=== PATIENT | female | born 1980 | race Caucasian/White ===

== ENCOUNTER 2016-10-21 16:29 | Emergency (ER) | payer OTHER ==
[2016-10-21 16:40] VITALS: BP 133/92
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
== END 2016-10-21 18:30 | disposition home or self-care (01) ==
LOC: ER 16:29
DX: M54.5 Low back pain (principal); V89.2XXA Person injured in unspecified motor-vehicle accident, traffic, initial encounter; Y93.89 Activity, other specified; Y99.8 Other external cause status; Y92.89 Other specified places as the place of occurrence of the external cause
CPT/HCPCS: 72100; 81025; 99284

== ENCOUNTER 2017-03-05 21:42 | Inpatient (IN) | payer OTHER ==
[~2017-03-05] VITALS: Ht 170.2 cm; Wt 106.1 kg
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
[2017-03-05] MEDS ORDERED: FAMOTIDINE 20 MG/2 ML VIAL IVP ONE (22:15)
[2017-03-05] MEDS ORDERED: ONDANSETRON PF 4 MG/2 ML VIAL. IV ONE (22:15)
[2017-03-05] MEDS ORDERED: MORPHINE SULFATE 4 MG/ML DISP.SYRIN. IV ONE (22:15)
[2017-03-05] MEDS ORDERED: LIDO:MAALOX 1:1 20 ML SINGLE DOSE PO ONE (22:15)
[2017-03-05] MEDS ORDERED: IV RINGERS SOLUTION,LACTATED 1,000 ML IV SCH (22:15)
[2017-03-05 22:36] LABS: BASO # 0.1 x10^3/uL (0.0-0.2); BASO % 1 % (0-3); EOS # 0.2 x10^3/uL (0.0-0.7); EOS % 2 % (0-3); HEMATOCRIT 37.5 % (36.0-47.0); HEMOGLOBIN 12.6 g/dL (12.0-15.5); LYMPH % 26 % (24-48); MEAN CORPUSCULAR HEMOGLOBIN 26 pg (25-35); MEAN CORPUSCULAR HGB CONC 34 g/dL (31-37); MEAN CORPUSCULAR VOLUME 78 fL (79-100); MONO # 0.8 x10^3/uL (0.0-1.1); MONO % 7 % (0-9); NEUT # 7.8 x10^3uL (1.8-7.7); NEUT % 65 % (31-73); PLATELET COUNT 234 x10^3/uL (140-400); RED BLOOD COUNT 4.83 x10^6/uL (3.50-5.40); WHITE BLOOD COUNT 11.9 x10^3/uL (4.0-11.0)
[2017-03-05] MEDS ORDERED: IOHEXOL 240 MG/ML 50ML VIAL. PO ONE (22:45)
[2017-03-05] MEDS ORDERED: CONTRAST GIVEN MC PRN (22:45)
[2017-03-05] MEDS ORDERED: IOHEXOL 300 MG/ML 75 ML VIAL. IV ONE (22:45)
[2017-03-05 22:57] LABS: ALBUMIN 3.1 g/dL (3.4-5.0); ALK PHOS 93 U/L (46-116); ALT (SGPT) 18 U/L (14-59); AMYLASE 52 U/L (25-115); ANION GAP 7 (6-14); AST (SGOT) 12 U/L (15-37); BLOOD UREA NITROGEN 10 mg/dL (7-20); CALCIUM 8.7 mg/dL (8.5-10.1); CARBON DIOXIDE 26 mmol/L (21-32); CHLORIDE 105 mmol/L (98-107); CREATINE KINASE 70 U/L (26-192); CREATININE 0.8 mg/dL (0.6-1.0); DIRECT BILIRUBIN 0.1 mg/dL (0.0-0.2); GFR 81.2; GLUCOSE 100 mg/dL (70-99); LIPASE 422 U/L (73-393); POTASSIUM 3.8 mmol/L (3.5-5.1); SODIUM 138 mmol/L (136-145); TOTAL BILIRUBIN 0.3 mg/dL (0.2-1.0); TOTAL PROTEIN 7.4 g/dL (6.4-8.2)
[2017-03-05 23:07] LABS: U PREG PATIENT NEGATIVE (NEG)
[2017-03-05 23:10] LABS: BACTERIA,URINE FEW /HPF (0-FEW); BILIRUBIN,URINE NEG (NEG); CLARITY,URINE HAZY; COLOR,URINE YELLOW; GLUCOSE,URINE NEG (NEG); NITRITE,URINE NEG (NEG); RBC,URINE OCC /HPF (0-2); UROBILINOGEN,URINE 0.2 mg/dL (0.2 mg/dL); WBC,URINE OCC /HPF (0-4)
[2017-03-05 23:11] LABS: SQUAMOUS EPITHELIAL CELL,UR MOD /LPF
--- NOTE | 2017-03-05 23:14 | RAD ---
PQRS Compliance Statement: One or more of the following individualized dose reduction techniques were utilized for this examination: 1. Automated exposure control 2. Adjustment of the mA and/or kV according to patient size 3. Use of iterative reconstruction technique CT abdomen/pelvis with contrast 03/05/2017 10:55 PM INDICATION: Severe epigastric pain, nausea. History of pancreatitis 2 years ago. COMPARISON: None available TECHNIQUE: Multiple axial CT images of the abdomen and pelvis were obtained after the intravenous administration of nonionic contrast. Coronal and sagittal reformats are provided. FINDINGS: Visualized portions of the lung bases are clear. Heart size is within normal limits. Liver, spleen, bilateral adrenal glands and gallbladder are normal in appearance. There is mild peripancreatic fat stranding which may reflect pancreatitis. Splenic vein is patent. Superior mesenteric artery is normal in appearance. Abdominal aorta is normal in course and caliber. Kidneys enhance symmetrically. No suspicious renal mass. There is no hydronephrosis. No calculi are identified in the kidneys, ureters or urinary bladder. Small and large bowel are normal in caliber. A normal appendix is visualized. No bowel inflammation or obstruction. Urinary bladder is within normal limits given degree of distention. Uterus and adnexa are within normal limits. No suspicious osseous lesions are identified. IMPRESSION: Findings are suggestive of mild pancreatitis. No peripancreatic fluid collections are identified. No vascular complications are identified. Electronically signed by: Frances Bennett MD (03/05/2017 11:10 PM) [facility] [place]
[2017-03-06] MEDS ORDERED: ONDANSETRON PF 4 MG/2 ML VIAL. IV PRN
[2017-03-06 01:21] VITALS: BP 129/93
[2017-03-06] MEDS ORDERED: ACETAMINOPHEN 325 MG TABLET PO PRN (04:45)
[2017-03-06 05:23] VITALS: BP 107/68
[2017-03-06 06:59] LABS: CALCIUM 8.4 mg/dL (8.5-10.1); CREATININE 0.7 mg/dL (0.6-1.0); GFR 94.7; POTASSIUM 3.7 mmol/L (3.5-5.1)
[2017-03-06 07:03] LABS: BASO # 0.1 x10^3/uL (0.0-0.2); BASO % 1 % (0-3); EOS # 0.2 x10^3/uL (0.0-0.7); EOS % 2 % (0-3); HEMATOCRIT 35.3 % (36.0-47.0); LYMPH # 3.2 x10^3/uL (1.0-4.8); LYMPH % 29 % (24-48); MEAN CORPUSCULAR HEMOGLOBIN 27 pg (25-35); MEAN CORPUSCULAR HGB CONC 34 g/dL (31-37); MEAN CORPUSCULAR VOLUME 78 fL (79-100); MONO # 0.6 x10^3/uL (0.0-1.1); MONO % 6 % (0-9); NEUT # 6.8 x10^3uL (1.8-7.7); NEUT % 62 % (31-73); PLATELET COUNT 220 x10^3/uL (140-400); RED BLOOD COUNT 4.52 x10^6/uL (3.50-5.40); RED CELL DISTRIBUTION WIDTH 13.7 % (11.5-14.5); WHITE BLOOD COUNT 10.9 x10^3/uL (4.0-11.0)
--- NOTE | 2017-03-06 07:42 | RAD ---
Acute abdomen series, 3 views, 03/05/2017: History: Epigastric pain, nausea The abdominal gas pattern is unremarkable. No free air is seen in the abdomen. There is no evidence of organomegaly. Lower pelvic calcifications are compatible with phleboliths. The heart size is normal. The lungs are clear. IMPRESSION: No acute abdominal abnormality is detected.
[2017-03-06] MEDS: FAMOTIDINE 20 MG/2 ML VIAL IVP SCH ×2 (09:41→20:47)
[2017-03-06 10:51] VITALS: BP 118/80
[2017-03-06] MEDS: IV RINGERS SOLUTION,LACTATED 1,000 ML IV SCH ×3 (12:00→20:48)
[2017-03-06 15:09] VITALS: BP 120/81
[2017-03-06] MEDS ORDERED: MORPHINE SULFATE 4 MG/ML DISP.SYRIN. IV PRN (15:45)
[2017-03-06] MEDS: HYDROmorphone PF 2 MG/ML VIAL IV PRN ×2 (16:38→20:47)
[2017-03-06] MEDS ORDERED: NORE1CAP PO (18:48)
[2017-03-06] MEDS: cefTRIAXone IV Push 1 GM VIAL. IVP SCH (20:48)
--- NOTE | 2017-03-06 21:18 | HP ---
ADMIT DATE: 03/06/2017 HISTORY OF PRESENT ILLNESS: The patient is a 36-year-old female patient who came to the Emergency Room complaining abdominal pain that mostly in the epigastric area associated with nausea, but no vomiting. The pain started about 2 days ago. Did complain of some chills, but no fever or rigors. She described her pain similar to her pancreatitis; however, the last time she drank any alcohol was about the New Year's Tracie. She does take ibuprofen for headache, but has no history of any melena or hematochezia. She is not known to have acute cholecystitis or cholelithiasis. Evaluation in the Emergency Room showed that her serum lipase was high at 422, and therefore, she was admitted with acute pancreatitis. She was kept n.p.o., started on IV fluid and pain medication with the plan is to follow her lipase. She did have a CT scan of the abdomen and pelvis, which showed that the visualized portion of the lung bases are clear, heart size is within normal limits. Liver, spleen, bilateral adrenal glands and gallbladder are normal in appearance. There is mild peripancreatic fat stranding, which may reflect pancreatitis. Splenic vein is patent. Superior mesenteric artery is normal in appearance. Abdominal aorta is normal in course and caliber. Kidneys enhanced symmetrically. No suspicious renal masses. There is hydronephrosis, no calculi identified in both kidneys, ureters or urinary bladder. Small and large bowels are normal in caliber and normal appendix is visualized. No bowel inflammation or obstruction. Urinary bladder is within normal limits. Given degree of distention, uterus and adnexa are within normal limits. No suspicious osseous lesions are identified. With the findings are suggestive of mild pancreatitis with no pancreatic or peripancreatic fluid collection identified, no vascular complication identified. The patient was kept n.p.o., started on IV fluid and pain medication. DICTATION ENDS HERE JOSE ANGEL STRONG MD DR: PAMELA/tricia JOB#: [id number] / [id number]
[2017-03-06 21:23] VITALS: BP 129/86
[2017-03-07] VITALS (7 sets, daily range): BP systolic 100–136; BP diastolic 41–84
[2017-03-07] MEDS: HYDROmorphone PF 2 MG/ML VIAL IV PRN ×5 (01:55→21:21)
[2017-03-07] MEDS: ONDANSETRON PF 4 MG/2 ML VIAL. IV PRN ×2 (05:18→15:03)
[2017-03-07 07:15] LABS: ALBUMIN 2.8 g/dL (3.4-5.0); ALBUMIN/GLOBULIN RATIO 0.7 (1.0-1.7); CALCIUM 8.7 mg/dL (8.5-10.1); CREATININE 0.7 mg/dL (0.6-1.0); GFR 94.7; HEMATOCRIT 34.9 % (36.0-47.0); HEMOGLOBIN 11.6 g/dL (12.0-15.5); RED BLOOD COUNT 4.4 x10^6/uL (3.50-5.40); RED CELL DISTRIBUTION WIDTH 14.2 % (11.5-14.5); TOTAL BILIRUBIN 0.5 mg/dL (0.2-1.0); WHITE BLOOD COUNT 9.5 x10^3/uL (4.0-11.0)
[2017-03-07] MEDS: FAMOTIDINE 20 MG/2 ML VIAL IVP SCH ×2 (09:55→21:21)
[2017-03-07] MEDS: IV RINGERS SOLUTION,LACTATED 1,000 ML IV SCH ×3 (14:00→21:20)
[2017-03-07] MEDS: cefTRIAXone IV Push 1 GM VIAL. IVP SCH (21:21)
[2017-03-08] MEDS: HYDROmorphone PF 2 MG/ML VIAL IV PRN (03:45)
[2017-03-08 05:04] VITALS: BP 125/79
[2017-03-08 06:54] LABS: CALCIUM 8.6 mg/dL (8.5-10.1); CREATININE 0.8 mg/dL (0.6-1.0); GFR 81.2; POTASSIUM 4.1 mmol/L (3.5-5.1)
--- NOTE | 2017-03-08 07:18 | RAD ---
Abdominal ultrasound, 03/07/2017: History: Recurrent pancreatitis The gallbladder is within normal limits in size. There is no sonographic evidence of cholelithiasis. The common hepatic duct is of normal caliber. There is no evidence of a hepatic mass. The pancreas was obscured by overlying bowel. The spleen is of normal size. No renal abnormality is detected. The abdominal aorta and inferior vena cava are unremarkable. No free fluid is evident in the abdomen. IMPRESSION: No acute abdominal abnormality is detected, although the pancreas was not adequately visualized due to overlying bowel.
--- NOTE | 2017-03-08 07:39 | PN ---
DATE: 03/07/2017 SUBJECTIVE: The patient is resting, sitting up in her bed comfortably in no apparent distress. She continued to complain of mild abdominal pain, some nausea, has not eaten anything so far. However, her serum lipase is down to 172. PHYSICAL EXAMINATION: GENERAL: When I examined her this afternoon, she looked well and was clearly in no apparent respiratory distress, pale, but jaundice, cyanosis, lymphadenopathy or thyromegaly. No jugular venous distension. No limb edema. VITAL SIGNS: Her heart rate was 81, blood pressure was 118/84, temperature was 98.3, respiratory rate 20, and oxygen saturation was 96%. HEENT: Normocephalic, atraumatic. NECK: Supple. HEART: Showed normal first and second heart sounds. No gallop, rub or murmur. CHEST: Clear to auscultation. No crepitation or rhonchi. ABDOMEN: Distended, soft, nontender. No guarding or rigidity. No organomegaly. Hernial orifice intact. Bowel sounds normal. NEUROLOGIC: She is awake, alert, responding appropriately. All cranial nerves intact. She moves extremities without difficulty. She ambulates without assistance or assistive devices. LABORATORY DATA: Her lab work this morning showed a white cell count of 9500, hemoglobin 11.6, hematocrit 35, MCV 79 and platelet count 226,000. Her serum sodium 140, potassium 4, chloride 104, bicarbonate 27, anion gap of 9, BUN 10, creatinine 0.7, estimated GFR was 95 mL per minute. Her glucose was 91, calcium was 8.7. Total bilirubin, AST, ALT, alkaline phosphatase were normal. Total protein 7, albumin 2.8. Serum lipase 172. ASSESSMENT: Relapsing pancreatitis. We will start with a clear liquid and advance diet tomorrow morning. We will also arrange for her to have abdominal ultrasound, although the CT scan showed the gallbladder was abnormal in appearance. There was some peripancreatic fat stranding, which may reflect pancreatitis, splenic vein is patent, superior mesenteric artery is normal in appearance. Abdominal aorta is normal. We will repeat all her labs tomorrow including fasting lipid profile and abdominal ultrasound and decide on the further management accordingly. JOSE ANGEL STRONG MD DR: PAMELA/tricia JOB#: [id number] / [id number]
[2017-03-08] MEDS: FAMOTIDINE 20 MG/2 ML VIAL IVP SCH (07:53)
[2017-03-08 11:41] VITALS: BP 126/72
[2017-03-08 15:29] VITALS: BP 111/77
[2017-03-08] MEDS ORDERED: LACTOBACILLUS RHAMNOSUS GG 1 CAPSULE. PO SCH (21:00)
--- NOTE | 2017-03-08 21:25 | DS ---
DATE OF DISCHARGE: 03/08/2017 HOSPITAL COURSE: The patient is a 36-year-old female patient, who came with a complaint of abdominal pain and was basically diagnosed with acute pancreatitis. We did extensive work initially including acute abdomen series and abdominal CT scan, which basically showed that there is mild peripancreatic stranding, which may reflect pancreatitis; however, the liver, spleen, bilateral adrenal glands, and gallbladders are normal in appearance. We initially kept her n.p.o., continue the IV fluid and IV pain medication. As her serum lipase trended down, we will start her on clear liquid and advance as tolerated. We checked her fasting lipid profile and abdominal ultrasound. The abdominal ultrasound showed that no acute abdominal abnormalities detected, although the pancreas was not adequately visualized due to overlying bowel; however, there is no sonographic evidence of cholelithiasis. The common bile duct is of normal caliber. There is no evidence of any hepatic mass. The pancreas was obscured by overlying bowel and as her pain is subsiding and she is tolerating her diet. A decision was made to discharge her home and with the recommendation to follow with the sign maintenance, I gave her recommendation to follow with or Dr. Srinath Gould at [facility] or sign maintenance at other hospitals of her choice. PHYSICAL EXAMINATION: GENERAL: When I examined her today, she looked well and was clearly in no apparent respiratory distress, pale, but no jaundice, cyanosis, or thyromegaly. No jugular venous distension. No limb edema. VITAL SIGNS: Her heart rate was 80, blood pressure was 111/77, temperature was 98.2, respiratory rate was 18, and oxygen saturation was 95%. HEAD, EYES, EARS, NOSE, AND THROAT: Showed normocephalic, atraumatic. NECK: Supple. HEART: Showed normal first and second heart sounds with no gallop, rub, or murmur. CHEST: Clear to auscultation. No crepitation or rhonchi. ABDOMEN: Distended, soft, nontender. No guarding or rigidity. No organomegaly. Hernial orifice intact. Bowel sounds normal. NEUROLOGIC: She is awake, alert, responding appropriately. Cranial nerves intact. She moves extremities without difficulty. She ambulates without assistance or assistive devices. Her intake over the last 24 hours was 2800, output was 1900. LABORATORY DATA: Her lab work this morning showed a serum sodium of 139, potassium 4.1, chloride 104, bicarbonate 27, anion gap of 8, BUN 10, creatinine 0.8, estimated GFR was 81 mL per minute. Her glucose 78 and calcium was 8.6. Her fasting lipid profile showed serum triglycerides of 115, total cholesterol 205, LDL cholesterol 137, VLDL was 23, and HDL cholesterol was 45, ratio was 4. Her serum lipase this morning was 127. Her white cell count was 9400, hemoglobin 11, hematocrit 34, MCV 79, and platelet count 226,000. The patient will be discharged home to continue on her home medication. FINAL DISCHARGE DIAGNOSES: Acute pancreatitis. JOSE ANGEL STRONG MD DR: PAMELA/tricia JOB#: [id number] / [id number]
== END 2017-03-08 17:00 | disposition home or self-care (01) | DRG 439 ==
LOC: ER 21:42 → 1 SOUTH 03-06 00:03 → UNDOADMIN 03-06 00:45 → 1 SOUTH 03-06 00:45
PROVIDERS: ADMIT Family Medicine; ATTEND Family Medicine
DX: K85.90 Acute pancreatitis without necrosis or infection, unspecified (principal); N13.30 Unspecified hydronephrosis; K86.1 Other chronic pancreatitis; Z86.19 Personal history of other infectious and parasitic diseases
CPT/HCPCS: 36415; 74022; 74177; 76700; 80048; 80053; 80061; 80076; 81001; 81025; 82150; 82553; 83690; 84484; 85025; 85027; 85610; 85730; 96361; 96365; 96368; 96375; 99406; J0696; J1170; J2405; J3010; J3490; J7120; Q9966; Q9967; S0028; 99285-25

== ENCOUNTER 2017-04-22 14:05 | Inpatient (IN) | payer OTHER ==
[~2017-04-22] VITALS: Ht 170.2 cm; Wt 107.5 kg
[~2017-04-22 14:05] MED LIST: NORE1CAP PO
--- NOTE | 2017-04-22 14:08 | PHYS DOC ---
Past History Past Medical History: No Pertinent History, Pancreatitis Past Surgical History: Alcohol Use: None Drug Use: None Adult General Chief Complaint Chief Complaint: abdominal pain HPI HPI Patient is a 37 year old female who presents with epigastric pain that sharp stabbing in nature and nausea. She states it feels just like her previous attacks of pancreatitis. She states started last night and is been getting worse. She did take protonic's agreeable hours ago but states it hasn't helped. She denies any chest pain shortness of breath fevers chills, dysuria or diarrhea. Review of Systems Review of Systems Constitutional: Denies fever or chills [] Eyes: Denies change in visual acuity, redness, or eye pain [] HENT: Denies nasal congestion or sore throat [] Respiratory: Denies cough or shortness of breath [] Cardiovascular: No additional information not addressed in HPI [] GI: Positive for abdominal pain, nausea, denies any vomiting, bloody stools or diarrhea. : Denies dysuria or hematuria [] Musculoskeletal: Denies back pain or joint pain [] Integument: Denies rash or skin lesions [] Neurologic: Denies headache, focal weakness or sensory changes [] Endocrine: Denies polyuria or polydipsia [] All other systems were reviewed and found to be within normal limits, except as documented in this note. Allergies Allergies Allergies Coded Allergies Type Severity Reaction Last Updated Verified No Known Drug Allergies 03/05/17 No Physical Exam Physical Exam Constitutional: Well developed, well nourished, no acute distress, non-toxic appearance. [] HENT: Normocephalic, atraumatic, bilateral external ears normal, oropharynx moist, no oral exudates, nose normal. [] Eyes: PERRLA, EOMI, conjunctiva normal, no discharge. [] Neck: Normal range of motion, no tenderness, supple, no stridor. [] Cardiovascular:Heart rate regular rhythm, no murmur [] Lungs & Thorax: Bilateral breath sounds clear to auscultation [] Abdomen: Bowel sounds normal, soft, tender to palpation epigastric area, no rebound or guarding noted, no masses, no pulsatile masses. [] Skin: Warm, dry, no erythema, no rash. [] Back: No tenderness, no CVA tenderness. [] Extremities: No tenderness, no cyanosis, no clubbing, ROM intact, no edema. [] Neurologic: Alert and oriented X 3, normal motor function, normal sensory function, no focal deficits noted. [] Psychologic: Affect normal, judgement normal, mood normal. [] EKG EKG [] Radiology/Procedures Radiology/Procedures [] Impressions: Pancreatitis Course & Med Decision Making Course & Med Decision Making Pertinent Labs and Imaging studies reviewed. (See chart for details) Patient is elevated 2000 her symptoms are consistent with pancreatitis. We'll admit to the hospitalist. Dr. Becerra has been informed and is acceptable of the patient. Dragon Disclaimer Dragon Disclaimer This electronic medical record was generated, in whole or in part, using a voice recognition dictation system. Departure Departure: Impression: Primary Impression: Recurrent pancreatitis Disposition: ADMITTED INPATIENT Admitting Physician: Ted Becerra Condition: STABLE Referrals: NON,STAFF (PCP) STAR ROSS MD Apr 22, 2017 14:08
[2017-04-22] MEDS ORDERED: IV NORMAL SALINE 1,000ML 1,000 ML IV SCH (14:10)
[2017-04-22] MEDS ORDERED: MORPHINE SULFATE 4 MG/ML DISP.SYRIN. IV/SQ PRN (14:15)
[2017-04-22] MEDS ORDERED: ONDANSETRON PF 4 MG/2 ML VIAL. IV ONE (14:15)
--- NOTE | 2017-04-22 14:29 | EKG ---
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
[2017-04-22 14:49] LABS: BASO # 0.1 x10^3/uL (0.0-0.2); BASO % 1 % (0-3); EOS # 0.2 x10^3/uL (0.0-0.7); EOS % 2 % (0-3); HEMATOCRIT 39.1 % (36.0-47.0); HEMOGLOBIN 13.2 g/dL (12.0-15.5); LYMPH # 2.3 x10^3/uL (1.0-4.8); LYMPH % 22 % (24-48); MEAN CORPUSCULAR HEMOGLOBIN 26 pg (25-35); MEAN CORPUSCULAR HGB CONC 34 g/dL (31-37); MEAN CORPUSCULAR VOLUME 78 fL (79-100); MONO # 0.4 x10^3/uL (0.0-1.1); MONO % 4 % (0-9); NEUT # 7.8 x10^3uL (1.8-7.7); NEUT % 72 % (31-73); PLATELET COUNT 275 x10^3/uL (140-400); RED BLOOD COUNT 5.02 x10^6/uL (3.50-5.40); RED CELL DISTRIBUTION WIDTH 14.1 % (11.5-14.5); WHITE BLOOD COUNT 10.9 x10^3/uL (4.0-11.0)
[2017-04-22 15:09] LABS: ALBUMIN 3.1 g/dL (3.4-5.0); CREATININE 0.8 mg/dL (0.6-1.0); DIRECT BILIRUBIN 0.1 mg/dL (0.0-0.2); GFR 80.7; POTASSIUM 4.1 mmol/L (3.5-5.1); TOTAL BILIRUBIN 0.5 mg/dL (0.2-1.0); TOTAL PROTEIN 7.7 g/dL (6.4-8.2)
[2017-04-22 15:27] LABS: BACTERIA,URINE 0 /HPF (0-FEW); BILIRUBIN,URINE NEG (NEG); CLARITY,URINE CLEAR; COLOR,URINE YELLOW; GLUCOSE,URINE NEG (NEG); NITRITE,URINE NEG (NEG); RBC,URINE OCC /HPF (0-2); SQUAMOUS EPITHELIAL CELL,UR OCC /LPF; UROBILINOGEN,URINE 0.2 mg/dL (0.2 mg/dL)
[2017-04-22] MEDS ORDERED: IV DEXTROSE 5 %-0.45 % NACL 1,000 ML IV ONE (16:45)
--- NOTE | 2017-04-22 17:15 | RAD ---
Limited abdomen ultrasound COMPARISON: CT abdomen March 05, 2017 HISTORY: Abdominal pain. Pancreatitis. Elevated lipase. FINDINGS: The pancreas and proximal aorta and IVC are not visualized due to extensive bowel gas shadowing as well as shadowing due to abdominal girth. Normal liver echogenicity. No liver mass. Upper segments of the liver poorly visualized due to rib shadowing. No gallstones or inflammatory changes of the gallbladder. The extrahepatic bile ducts are not visualized due to shadowing however there is no intrahepatic biliary ductal dilation documented. Normal directional blood flow the portal vein. Right renal length 12.8 cm, no right renal mass or hydronephrosis documented. Spleen and left kidney were not documented. IMPRESSION: No abnormality evident. Limited visualization of the midline structures. Electronically signed by: Baltazar Raman MD (04/22/2017 5:12 PM) [facility]
[2017-04-22 17:17] VITALS: BP 128/82
[2017-04-22] MEDS: ONDANSETRON PF 4 MG/2 ML VIAL. IV PRN ×2 (17:38→22:01)
[2017-04-22] MEDS: HYDROmorphone PF 2 MG/ML VIAL IV PRN ×2 (17:58→22:03)
[2017-04-22 19:14] VITALS: BP 133/86
[2017-04-22 22:57] VITALS: BP 97/61
[2017-04-23] MEDS: HYDROmorphone PF 2 MG/ML VIAL IV PRN ×4 (02:48→16:10)
[2017-04-23] MEDS: ONDANSETRON PF 4 MG/2 ML VIAL. IV PRN ×4 (03:38→16:10)
[2017-04-23 05:35] VITALS: BP 113/83
[2017-04-23] MEDS ORDERED: IV DEXTROSE 5 %-0.45 % NACL 1,000 ML IV SCH (06:15)
[2017-04-23 07:30] LABS: BASO % 0 % (0-3); EOS % 0 % (0-3); HEMATOCRIT 36.2 % (36.0-47.0); HEMOGLOBIN 12.1 g/dL (12.0-15.5); LYMPH # 1.6 x10^3/uL (1.0-4.8); LYMPH % 13 % (24-48); MEAN CORPUSCULAR HEMOGLOBIN 26 pg (25-35); MEAN CORPUSCULAR HGB CONC 33 g/dL (31-37); MEAN CORPUSCULAR VOLUME 79 fL (79-100); MONO # 0.7 x10^3/uL (0.0-1.1); MONO % 5 % (0-9); NEUT # 10.6 x10^3uL (1.8-7.7); NEUT % 81 % (31-73); PLATELET COUNT 245 x10^3/uL (140-400); RED BLOOD COUNT 4.61 x10^6/uL (3.50-5.40); RED CELL DISTRIBUTION WIDTH 14.1 % (11.5-14.5)
[2017-04-23 07:47] LABS: ALBUMIN 2.8 g/dL (3.4-5.0); ALBUMIN/GLOBULIN RATIO 0.7 (1.0-1.7); CALCIUM 8.7 mg/dL (8.5-10.1); CREATININE 0.6 mg/dL (0.6-1.0); GFR 112.5; POTASSIUM 4.2 mmol/L (3.5-5.1); TOTAL BILIRUBIN 0.7 mg/dL (0.2-1.0)
[2017-04-23 10:46] VITALS: BP 98/63
[2017-04-23 15:47] VITALS: BP 117/73
--- NOTE | 2017-04-23 16:51 | HP ---
ADMIT DATE: 04/22/2017 HISTORY OF PRESENT ILLNESS: The patient is a 37-year-old female patient who came again complaining of epigastric pain that is sharp, stabbing in nature, nausea, stating that she felt exactly like her attacks of pancreatitis before. It started the night before and is getting worse. She took her Protonix, but did not help. Denied any diarrhea, chills, rigors or fever. She was evaluated in the Emergency Room and her serum lipase is high at 2835 and the patient was admitted for pain management, IV fluids and kept n.p.o. PAST MEDICAL HISTORY: Significant for previous episode of acute pancreatitis treated on 03/08/2017. At that time, we have extensive investigation including abdominal ultrasound. I did also a fasting lipid profile, which basically ruled out hypertriglyceridemia as a cause of it. In fact, her serum lipase was much less than it is today on presentation last time. She is not alcoholic and she was not taking any thiazide. Her serum calcium was normal and basically ruled out most cause of pancreatitis last time. PAST SURGICAL HISTORY: Unremarkable. FAMILY HISTORY: Unremarkable. 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 She apparently does not smoke, drink alcohol or use any recreational drugs. ALLERGIES: SHE IS ALLERGIC TO AMOXICILLIN. MEDICATIONS: She is currently on one medication called Taytulla 1 mg/20 mcg capsule for control pill. PHYSICAL EXAMINATION: GENERAL: On arrival to the Emergency Room, she looked well and was clearly in no apparent respiratory distress, no pallor, jaundice or cyanosis. No lymphadenopathy, no thyromegaly. No jugular venous distension. No lower limb edema. VITAL SIGNS: Her heart rate was 72, blood pressure was 97/61, temperature was 97.9, respiratory rate was 18 and oxygen saturation was 94% on room air. HEENT: Showed normocephalic, atraumatic. NECK: Supple. HEART: Showed normal first and second heart sounds with no gallop, rub or murmur. CHEST: Clear to auscultation. No crepitation or rhonchi. ABDOMEN: Distended, soft. Tenderness mostly on palpating the epigastric area. No rebound. No guarding or rigidity. No organomegaly. No palpable pulsatile masses. NEUROLOGIC: She is awake, alert, oriented to time, place and person. No motor or sensory deficit. No focal deficit. SKIN: Warm, dry with no erythema or rashes. Her affect is normal with a normal mood and judgment. LABORATORY DATA: On arrival showed a white cell count of 10,900, hemoglobin 13, hematocrit 39, MCV 78 and platelet count 275,000. Her chemistry showed a serum sodium 139, potassium 4.1, chloride 104, bicarbonate 27, anion gap of 8, BUN 13, creatinine 0.8, estimated GFR was 81 mL per minute. Her glucose was 98, calcium was 9. Total bilirubin, AST, ALT, alkaline phosphatase were normal. Her total protein was 7.7, albumin 3.1. Serum lipase was 2835. Her prothrombin time was 10.4, INR of 1, aPTT was 24. Urinalysis was essentially unremarkable. The urine was yellow, clear with a pH of 5.5, specific gravity 1.025. The urine was negative for protein, glucose, ketones, there was small amount of blood, negative for nitrite and leukocyte esterase, there are occasional rbc's, 1-4 wbc's, and no bacteria. Her abdominal ultrasound again showed that the pancreas and proximal aorta and IVC are not visualized due to extensive bowel gas shadowing as well as shadowing due to abdominal girth. She has normal liver echogenicity. No liver mass upper. Upper segment of the liver with poorly visualized due to rib shadowing. No gallstones or inflammatory changes of the gallbladder. The extrahepatic bile ducts are not visualized due to shadowing; however, there is no intrahepatic biliary ductal dilatation, documented normal direction of blood flow in the portal vein, right renal length is 12.8 cm. No right renal masses or hydronephrosis documented. Spleen and left kidney were not documented. ASSESSMENT AND PLAN: The patient was admitted, was continued on IV fluid, IV hydromorphone, antiemetic, kept n.p.o. We will follow her lab work and once her lipase normalized and the pain resolved, we will start her on a clear liquid diet and advance as tolerated. Of note, I looked in to the side effects of her control pill and actually one of the side effects is pancreatitis. JOSE ANGEL STRONG MD DR: PAMELA/tricia JOB#: [id number] / [id number]
--- NOTE | 2017-04-23 18:22 | DS ---
DATE OF DISCHARGE: 04/23/2017 HISTORY OF PRESENT ILLNESS: The patient is a 37-year-old female patient who is coming now for the second time with acute pancreatitis that was extensively investigated before. Her abdominal ultrasound did not reveal any evidence of gallbladder disease or cholelithiasis and her fasting lipid profile showed no evidence of hypertriglyceridemia. No hypercalcemia. She does not drink alcohol. She is not on any hydrochlorothiazide or any other medications that might cause the acute pancreatitis; however, she is on her control pill called Taytulla, one of the side effect of that medication is acute pancreatitis. Given that she continued to have severe pain, decision was made to transfer her to [facility] to consult GI team there for further evaluation, perhaps do an MRCP or an ERCP if deemed necessary. PHYSICAL EXAMINATION: GENERAL: On examining her today, she was sitting slightly propped up in bed, in no apparent distress. She continued to complain of severe pain, but no nausea or vomiting. There was no pallor, jaundice, cyanosis, or thyromegaly. No jugular venous distension. No lower limb edema. VITAL SIGNS: Her heart rate was 82, blood pressure 117/73, temperature was 98.3, respiratory rate was 20, and oxygen saturation was 100% on room air. HEAD, EYES, EARS, NOSE AND THROAT: Showed normocephalic, atraumatic. NECK: Supple. HEART: Showed normal first and second heart sounds with no gallop or murmur. CHEST: Clear to auscultation. No crepitation or rhonchi. ABDOMEN: Distended, soft, tenderness mostly in the epigastric area. There is no guarding or rigidity. No organomegaly. Hernial orifice intact. Bowel sounds normal. NEUROLOGIC: She is awake, alert, responding appropriately, appears intact. She moves extremities without difficulty. She ambulates without assistance or assistive devices. LABORATORY DATA: Her lab work this morning showed a white cell count of 13,000, hemoglobin 12, hematocrit 36, MCV 79 and platelet count of 245,000. Her chemistry showed a serum sodium 136, potassium 4.2, chloride 104, bicarbonate 23, anion gap of 9, BUN 10, creatinine 0.6, estimated GFR was 112 mL per minute. Her glucose 116, calcium was 8.7. Total bilirubin, AST, ALT, alkaline phosphatase were normal. Total protein 7, albumin was 2.8. Her serum lipase morning was down to 808 from 2835. Her prothrombin time, INR and aPTT were normal. Urinalysis is unremarkable. The patient will be discharged or transferred to [facility] to continue on hydromorphone 2 mg every 4 hours, ondansetron 4 mg every 4 hours, D5 half normal 75 mL per hour. She should be n.p.o. We will arrange for her to have a CT scan of the abdomen and pelvis with IV and oral contrast and we will consult the gastroenterology team to assist in her management. JOSE ANGEL STRONG MD DR: PAMELA/tricia JOB#: [id number] / [id number]
== END 2017-04-23 17:01 | disposition short-term general hospital (02) | DRG 438 ==
LOC: ER 14:05 → 1 SOUTH 17:03
PROVIDERS: ADMIT Internal Medicine; ATTEND Internal Medicine
DX: K85.30 Drug induced acute pancreatitis without necrosis or infection (principal); E43 Unspecified severe protein-calorie malnutrition; T38.4X5A Adverse effect of oral contraceptives, initial encounter; Z88.1 Allergy status to other antibiotic agents; Y92.89 Other specified places as the place of occurrence of the external cause
CPT/HCPCS: 36415; 76705; 80048; 80053; 80076; 81001; 82553; 83690; 84484; 85025; 85610; 85730; 93005; 96361; 96374; 96375; J1170; J2270; J2405; J3010; 99285-25; J7030

== ENCOUNTER 2019-03-10 22:02 | Emergency (ER) | payer OTHER ==
[~2019-03-10] VITALS: Ht 170.2 cm; Wt 106.0 kg
[2019-03-10 22:05] VITALS: BP 117/73
--- NOTE | 2019-03-10 22:52 | PHYS DOC ---
Past History Past Medical History: Pancreatitis Past Surgical History: Alcohol Use: None Drug Use: None Adult General Chief Complaint Chief Complaint: FLU SYMPTOM... I got the flu.. and sore throat... " ... " It started . I seen [facility] office.. the did a flu swab.. but I will not have results until monday... they did start me on Tamilflu.. but I am not getting better.. throat is so sore.. fever..now I am puking... " [facility] HPI Patient is a 38 year old female who presents with above history and complaints of fever, chills, malaise, pharyngitis, arthralgia, myalgia and nonproductive cough. The patient follows Dr. Pickering. She was seen in [facility]'s office and did receive strep and flu screens but results will not be available until Monday. Patient was started on Tamiflu. Patient reports her sore throat has gotten much worse. Patient does have adenopathy in the anterior chain of neck.. Retropharyngeal is very erythemic but no obvious abscesses. No stridor. Does have postnasal drainage, swollen turbinates and rhinorrhea. Patient did not receive a flu vaccination this season. No recent travel. No specific ill contacts. Review of Systems Review of Systems Constitutional: History of fever or chills [] Eyes: Denies change in visual acuity, redness, or eye pain [] HENT: History of nasal congestion and a very sore throat [] Respiratory: History of a nonproductive cough .] Cardiovascular: No additional information not addressed in HPI [] GI: Denies abdominal pain, bloody stools or diarrhea [].nausea, vomiting, while in the emergency department : Denies dysuria or hematuria [] Musculoskeletal: Complaints of generalized myalgia and arthralgia Integument: Denies rash or skin lesions [] Neurologic: Denies headache, focal weakness or sensory changes [] Endocrine: Denies polyuria or polydipsia [] All other systems were reviewed and found to be within normal limits, except as documented in this note. Family History Family History Noncontributory to her presentation.- Grandmother and grandfather had cardiac issues after age 60 Current Medications Current Medications See nursing for home meds Allergies Allergies Allergies Coded Allergies Type Severity Reaction Last Updated Verified amoxicillin Allergy Unknown 04/22/17 Yes Note pt got a rash as a child with Amoxicillin, but has taken it several times as a adult with no allergic response. Physical Exam Physical Exam Constitutional: In moderate acute distress, ill in appearance. [] HENT: Normocephalic, atraumatic, bilateral external ears normal, oropharynx moist, postnasal drainage, marked erythema of pharynx no oral exudates, nose swollen turbinates and clear rhinorrhea Eyes: PERRLA, EOMI, conjunctiva normal, no discharge. [] Neck: Normal range of motion, no tenderness, supple, no stridor. Adenopathy in anterior cervical chains Cardiovascular: Tachycardia Heart rate regular rhythm, no murmur [] Lungs & Thorax: Bilateral breath sounds equal at apexes and a few scattered wheezes on auscultation [] Abdomen: Bowel sounds normal, soft, no tenderness, no masses, no pulsatile masses. Obese. Old surgical scar Skin: Warm, dry, no erythema, no rash. [] Back: No tenderness, no CVA tenderness. [] Extremities: No tenderness, no cyanosis, no clubbing, ROM intact, no edema. [] Neurologic: Alert and oriented X 3, normal motor function, normal sensory function, no focal deficits noted. [] Psychologic: Affect anxious, judgement normal, mood normal. [] Current Patient Data Vital Signs Vital Signs Date Time Temp Pulse Resp B/P (MAP) Pulse Ox O2 Delivery O2 Flow Rate FiO2 03/10/19 22:05 99.9 106 22 117/73 (88) 100 Room Air Lab Results Laboratory Tests Test 03/10/19 22:10 03/10/19 22:43 Group A Streptococcus Rapid Positive (NEGATIVE) POC Urine HCG, Qualitative hcg negative (Negative) EKG EKG [] Radiology/Procedures Radiology/Procedures [] Course & Med Decision Making Course & Med Decision Making Pertinent Labs and Imaging studies reviewed. (See chart for details) Gargle with Listerine 4 times a day. Take Tylenol and ibuprofen as needed for pain and fever and discomfort. Push fluids. Zofran 8 mg up to 4 times a day for active vomiting. Avoid solids or milk products and actively vomiting. Must push frequent cool drinks Popsicles etc. would continue the Tamiflu as previously directed. Liquid ibuprofen and Benadryl may be helpful for the topical pain relief in pharynx. Patient warned if she develops stridor or no oral improvement must have reexam. If any significant signs of increase difficulty swallowing or with respiration must return. May need a CT of soft tissue neck if stridor or swelling develops. Take Zithromax 250 mg daily. Impression- 1. Strep pharyngitis 2. Fever 3. Viral syndrome-arthralgia, myalgia, vomiting and malaise- is currently on Tamiflu [] Dragon Disclaimer Dragon Disclaimer This electronic medical record was generated, in whole or in part, using a voice recognition dictation system. Departure Departure: Disposition: HOME/RESIDENCE PRIOR TO ADM Condition: STABLE Referrals: NOAH EDMONDS MD (PCP) Scripts Azithromycin (ZITHROMAX) 250 Mg Tablet 250 MG PO DAILY for ANTI-BIOTIC for 5 Days, #5 TAB 0 Refills Prov: MELANIE ALBRIGHT MD 03/11/19 Ondansetron Hcl (ZOFRAN) 8 Mg Tablet 8 MG PO QIDPRN PRN for for active vomiting, #30 BOTTLE Prov: MELANIE ALBRIGHT MD 03/10/19 Hydrocodone/Ibuprofen (HYDROCODONE-IBUPROFEN 7.5-200 ) 1 Each Tablet 1 TAB PO PRN Q6HRS PRN for PAIN, #30 TAB 0 Refills Prov: MELANIE ALBRIGHT MD 03/10/19 Dragon Disclaimer This chart was dictated in whole or in part using Voice Recognition software in a busy, high-work load, and often noisy Emergency Department environment. It may contain unintended and wholly unrecognized errors or omissions. MELANIE ALBRIGHT MD Mar 10, 2019 22:52
[2019-03-10 23:15] LABS: BARBITURATES NEG (NEG); BENZODIAZEPINES NEG (NEG); CANNABINOIDS NEG (NEG); COCAINE NEG (NEG); METHADONE NEG (NEG); OPIATES NEG (NEG); PHENCYCLIDINE NEG (NEG)
[2019-03-10 23:18] LABS: AMPHETAMINE/METHAMPHETAMINE NEG (NEG)
[2019-03-10 23:19] LABS: BILIRUBIN,URINE NEG (NEG); CLARITY,URINE HAZY; COLOR,URINE YELLOW; GLUCOSE,URINE NEG (NEG)
[2019-03-10 23:20] LABS: BACTERIA,URINE 0 /HPF (0-FEW); NITRITE,URINE NEG (NEG); RBC,URINE 20-40 /HPF (0-2); SQUAMOUS EPITHELIAL CELL,UR OCC /LPF
[2019-03-10] MEDS ORDERED: HYDR-1179 PO (23:52)
[2019-03-10] MEDS ORDERED: ONDA8TAB9 PO (23:52)
[2019-03-11] MEDS ORDERED: AZITHROMYCIN 250 MG TABLET. PO ONE
[2019-03-11] MEDS ORDERED: diphenhydrAMINE HCL 25 MG CAPSULE PO ONE
[2019-03-11] MEDS ORDERED: ONDANSETRON ODT 4 MG TAB.RAPDIS PO ONE
[2019-03-11] MEDS ORDERED: HYDROcodon/IBUPROFEN 7.5/200MG 1 TAB TABLET PO ONE
[2019-03-11] MEDS ORDERED: predniSONE 10 MG TABLET PO ONE
[2019-03-11] MEDS ORDERED: cefTRIAXone IM 1 GM VIAL IM ONE
[2019-03-11] MEDS ORDERED: LIDOCAINE 1% Multi-Dose 20 ML VIAL. ONE (00:28)
[2019-03-11] MEDS ORDERED: AZIT250T PO (01:07)
== END 2019-03-11 01:05 | disposition home or self-care (01) ==
LOC: ER 22:02
DX: B34.9 Viral infection, unspecified (principal); J02.0 Streptococcal pharyngitis; B96.89 Other specified bacterial agents as the cause of diseases classified elsewhere; R50.9 Fever, unspecified; R11.2 Nausea with vomiting, unspecified; M79.10 Myalgia, unspecified site; Z98.890 Other specified postprocedural states; Z88.1 Allergy status to other antibiotic agents
CPT/HCPCS: 36415; 80307; 81001; 81025; 87880; 96372; 99284; J0456; J0696; J7512; Q0162; Q0163